=== PATIENT | male | born 1970 | race Caucasian/White ===

== ENCOUNTER 2018-11-05 00:24 | Emergency (ER) | payer SELFPAY ==
--- NOTE | 2018-11-05 00:30 | EDPHY ---
H & P Time Seen by Provider: 11/05/18 00:29 HPI/ROS: HPI CHIEF COMPLAINT: Medical clearance for fdc. HISTORY OF PRESENT ILLNESS: This patient is a 48-year-old male very uncooperative, arrives to the emergency room with police in 4 point restraints. The patient was under arrest tonight in the back of the police car he started kicking the back window of the police car. The police car had to pocket and pulley machine operator and the patient had to be removed from the back the police car when they removed him they placed him on the ground. And then he was placed in 4 point restraint. He is brought to the emergency for medical clearance for fdc. There is no significant trauma per police or EMS. The patient is very uncooperative however he denies any medical complaints. Denies any injuries. He is moving everything appropriately. Upon arrival to the emergency room head to toe trauma exam was obtain and no visible trauma on exam. Patient denies any complaints. He denies wanting to answer any of my questions. There is no visible trauma. Past Medical History: Denies Past Surgical History: Denies Social History: Denies Family History: Denies ROS REVIEW OF SYSTEMS: Uncooperative Exam Constitutional triage nursing summary reviewed, vital signs reviewed, awake/ alert. Eyes normal conjunctivae and sclera, EOMI, PERRLA. HENT head and neck atraumatic, normal inspection, atraumatic, moist mucus membranes, no epistaxis, neck supple/ no meningismus, no raccoon eyes. Respiratory clear to auscultation bilaterally, normal breath sounds, no respiratory distress, no wheezing. Cardiovascular rate normal, regular rhythm, no murmur, no edema, distal pulses normal. Gastrointestinal soft, non-tender, no rebound, no guarding, normal bowel sounds, no distension, no pulsatile mass. Genitourinary no CVA tenderness. Musculoskeletal no midline vertebral tenderness, full range of motion, no calf swelling, no tenderness of extremities, no meningismus, good pulses, neurovascularly intact. Skin pink, warm, & dry, no rash, skin atraumatic. Neurologic uncooperative, yelling at police, angry, awake, alert and oriented x 3, AAOx3, moves all 4 extremities equally, motor intact, sensory intact, CN II -XII intact, normal cerebellar, normal vision, normal speech. Psychiatric normal mood/affect. Heme/Lymph/Immune no lymphadenopathy. Differential Diagnosis: Includes but is not limited to in a particular order multiple contusions, abrasions, soft tissue injury, anger issues, legal problems Medical Decision Making: Plan for this patient he can be medically cleared to go to fdc. He has no injury evident on exam. He denies any complaints. He is noted to be uncooperative and screaming at police. Given that there is no visible injury and he denies any complaints he can be medically cleared for fdc vital signs are stable. Source: Patient, Police, EMS Exam Limitations: Other Allergies/Adverse Reactions: No Known Allergies Allergy (Unverified 11/05/18 00:29) Departure - Departure Disposition: Home, Routine, Self-Care Clinical Impression: Contusion Condition: Good Instructions: Contusion in Adults (ED) Additional Instructions: 1. Medically cleared for fdc. Referrals: Patient,NotPresent [Primary Care Provider] - As per Instructions
[2018-11-05 00:40] VITALS: BP 103/85
== END 2018-11-05 00:33 | disposition home or self-care (01) ==
DX: T14.8XXA Other injury of unspecified body region, initial encounter (principal)